=== PATIENT | male | born 1960 | race Caucasian/White ===

== ENCOUNTER 2016-08-14 22:50 | Emergency (ER) | payer OTHER ==
[~2016-08-14] VITALS: Wt 81.0 kg
[~2016-08-14 22:50] MED LIST: ADV50050 INHALATION; ALBU8.5H5 INHALATION; FAMO-18 PO; LORA10TA3 PO; TIOT18CA INHALATION
[2016-08-15] MEDS ORDERED: FLUORESCEIN STRIP RIGHT EYE ONE (00:30)
[2016-08-15] MEDS ORDERED: TETRACAINE 0.5% 4 ML OPH BOTH EYES ONE (00:30)
[2016-08-15] MEDS ORDERED: IPRATROPIUM (NEB) 0.5 MG/2.5 ML AMP NEB STA (00:32)
[2016-08-15] MEDS ORDERED: ALBUTEROL 0.083% (NEB) 2.5 MG/3 ML AMP NEB STA (00:32)
--- NOTE | 2016-08-15 00:32 | ERD ---
ER Documentation Chief Complaint Date/Time DATE: 08/15/16 TIME: 00:28 Chief Complaint r. eyelid swollen, denies trauma. low 02 in triage, hx asthma HPI 56-year-old male presents to emergency department for complaints of right upper and lower eyelid swelling that started yesterday, describes the pain as throbbing pain, 6/10 scale, is worse upon touching upper and lower eyelid. Patient denies vision changes, denies any trauma in the eye, denies any deformity sensation in the eye. Patient denies any fever or chills. Patient also is complaining cough that started with wheezing this morning. Patient has history of asthma, uses inhaler with only mild. Patient denies any chest or palpitations. Patient denies any irregular heartbeat. Patient denies any dyspnea on exertion or dyspnea on lying down. ROS All systems reviewed and are negative except as per history of present illness. Medications Home Meds Active Scripts Famotidine* (Pepcid*) 20 Mg Tablet, 20 MG PO BID for 14 Days, #60 TAB Prov:CATERINA DONAHUE V. SENIOR [employer] WE[employer] DEVELOPER 10/20/[address] [place]* (Spiriva*) 18 Mcg Cap.w.dev, 1 CAP INHALATION DAILY, #30 CAP Prov:CATERINA DONAHUE V. SENIOR [employer] WE[employer] DEVELOPER 10/20/15 Salmeterol Xinaf-Fluticasone* (Advair*) 500/50 Diskus Inhaler, 1 INH INHALATION BID, #1 INHALER Prov:CATERINA DONAHUE V. SENIOR [employer] WE[employer] DEVELOPER 10/20/15 Albuterol Sulfate* (Albuterol Sulfate* HFA) 8.5 Gm Hfa.aer.ad, 2 PUFF INHALATION Q4H Y for WHEEZING AND SOB, #1 VIAL use every 4 hrs for the next 2 days, then as needed only Prov:KYLE HERNANDEZ 03/02/15 Reported Medications Loratadine* (Loratadine*) 10 Mg Tablet, 10 MG PO DAILY 05/21/15 Allergies Allergies: Coded Allergies: aspirin (Verified Allergy, Unknown, 08/15/16) ibuprofen (Verified Allergy, Unknown, 08/15/16) ketorolac (Verified Allergy, Unknown, 08/15/16) PMhx/Soc History of Surgery: No Anesthesia Reaction: No Hx Neurological Disorder: No Hx Respiratory Disorders: Yes (asthma) Hx Cardiac Disorders: No Hx Psychiatric Problems: No Hx Miscellaneous Medical Probl: Yes (hypothyroid) Hx Alcohol Use: Yes Hx Substance Use: No Hx Tobacco Use: No Smoking Status: Former smoker FmHx Family History: No coronary disease, No diabetes, No other Physical Exam Vitals Vital Signs Date Time Temp Pulse Resp B/P Pulse Ox O2 Delivery O2 Flow Rate FiO2 08/15/16 02:40 76 18 151/91 95 Room Air 08/15/16 00:51 71 18 93 21 08/14/16 23:12 98.1 93 20 127/82 94 Physical Exam GENERAL: The patient is well developed and appropriate for usual state of health, in no apparent distress. HEENT: Atraumatic. Bilateral eyes are PERRL EOM intact. Ears: Normal tympanic membrane, no erythema or bulging. No ear canal swelling. No ear discharge. Nose : normal nasal turbinates, no erythema or swelling. Normal nasal discharge. Throat: oropharynx clear. No tonsillar swelling or tonsillar exudates. No lymphadenopathy. CHEST: Diffuse wheezing noted bilaterally. There are no rales, crackles or rhonchi. HEART: Regular rate and rhythm. No murmurs, clicks, rubs or gallops. No S3 or S4. ABDOMEN: Soft, nontender and nondistended. Good bowel sounds. No rebound or guarding. No gross peritonitis. No gross organomegaly or masses. No Torres sign or McBurney point tenderness. BACK: No midline or flank tenderness. EXTREMITIES: Equal pulses bilaterally. There is no peripheral clubbing, cyanosis or edema. No focal swelling or erythema. Full range of motion. Grossly neurovascularly intact. NEURO: Alert and oriented. Cranial nerves 2-12 intact. Motor strength in all 4 extremities with 5/5 strength. Sensation grossly intact. Normal speech and gait. SKIN: Erythematous and induration on the right upper eyelid and right eyelid periorbital area. There is no apparent ecchymosis or petechia. The skin is warm and dry. HEMATOLOGIC AND LYMPHATIC: There is no evidence of excessive bruising or lymphedema. No gross cervical, axillary, or inguinal lymphadenopathy. Result Diagram: 08/15/16 0029 08/15/16 0029 Results 24 hrs Laboratory Tests Test 08/15/16 00:29 White Blood Count 7.810^3/ul Red Blood Count 5.9910^6/ul Hemoglobin 14.0g/dl Hematocrit 45.3% Mean Corpuscular Volume 75.6fl Mean Corpuscular Hemoglobin 23.4pg Mean Corpuscular Hemoglobin Concent 30.9g/dl Red Cell Distribution Width 15.2% Platelet Count 79713^3/UL Mean Platelet Volume 11.0fl Neutrophils % 56.2% Lymphocytes % 23.3% Monocytes % 9.1% Eosinophils % 10.1% Basophils % 1.2% Nucleated Red Blood Cells % 0.0/100WBC Neutrophils # 4.410^3/ul Lymphocytes # 1.810^3/ul Monocytes # 0.710^3/ul Eosinophils # 0.810^3/ul Basophils # 0.110^3/ul Nucleated Red Blood Cells # 0.010^3/ul Sodium Level 140mmol/L Potassium Level 4.2mmol/L Chloride Level 106mmol/L Carbon Dioxide Level 27mmol/L Anion Gap 11 Blood Urea Nitrogen 12mg/dl Creatinine 0.94mg/dl Glucose Level 115mg/dl Lactic Acid Level 0.8mmol/L Calcium Level 8.8mg/dl Total Bilirubin 0.3mg/dl Direct Bilirubin 0.00mg/dl Indirect Bilirubin 0.3mg/dl Aspartate Amino Transf (AST/SGOT) 22IU/L Alanine Aminotransferase (ALT/SGPT) 35IU/L Alkaline Phosphatase 98IU/L Total Protein 7.4g/dl Albumin 4.1g/dl Globulin 3.30g/dl Albumin/Globulin Ratio 1.24 Current Medications Medications (Trade) Dose Ordered Sig/Nickie Route PRN Reason Start Time Stop Time Status Last Admin Dose Admin Fluorescein Sodium (Wfaeo-S-Nuyxi) 1 strip ONCE ONCE RIGHT EYE 08/15/16 00:30 08/15/16 00:31 DC Tetracaine HCl (Tetracaine 0.5% Steri-Unit Clara) 1 drop ONCE ONCE BOTH EYES 08/15/16 00:30 08/15/16 00:31 DC Albuterol (Proventil 0.083% (Neb)) 5 mg ONCE STAT NEB 08/15/16 00:32 08/15/16 00:36 DC 08/15/16 00:[address] [place] (Atrovent 0.02% (Neb)) 0.5 mg ONCE STAT NEB 08/15/16 00:32 08/15/16 00:36 DC 08/15/16 00:51 IV Flush 10 ml 10 ml STK-MED ONCE .ROUTE 08/15/16 01:36 08/15/16 01:37 DC 08/15/16 01:54 Sodium Chloride (NS) 100 ml @ ud STK-MED ONCE .ROUTE 08/15/16 01:36 08/15/16 01:37 DC 08/15/16 01:54 Iohexol (Omnipaque 300mg/ ml) 150 ml STK-MED ONCE .ROUTE 08/15/16 01:36 08/15/16 01:37 DC 08/15/16 01:55 Breathing treatment of albuterol and Atrovent was given here in emergency department, after treatment, patient's lungs sounds are clear and patient's oxygenation is better. Patient verbalized feeling much better. IV vancomycin and IV Zosyn was started here in emergency department. PROCEDURE: XR Chest. CLINICAL INDICATION: Cough and wheezing. TECHNIQUE: Single frontal view of the chest. COMPARISON: None. FINDINGS: The cardiomediastinal silhouette is within normal limits. The lungs are clear. No signs of pleural fluid or pneumothorax are seen. The osseous structures and soft tissues are unremarkable. IMPRESSION: No evidence for active cardiopulmonary disease. RPTAT: [facility] Physician Joanna Date Time Electronically viewed and signed by Physician Joanna on 08/15/2016 01:22 RS/ CC: GISELLE DUMONT NP PROCEDURE: CT ORBITS WITH CONTRAST CLINICAL INDICATION: 56-year-old male with right orbital swelling. TECHNIQUE: The study was performed utilizing a [employer] CT VCT 64-slice scanner. Direct axial sections were obtained through the facial bones with the use of 75 cc of Omnipaque-300 nonionic intravenous contrast material. Coronal and sagittal re-formations were obtained. One or more of the following dose reduction techniques were utilized: automated exposure control, adjustment of the mA and/or kV according to patient's size or use of iterative reconstruction technique. The images were reviewed on a PACS workstation. CTD/vol = 53.3 mGy ; Total Exam DLP = 696.5 mGy-cm. COMPARISON: No prior studies are available for comparison. FINDINGS: There is extensive right periorbital and paranasal soft tissue swelling but with periorbital cellulitis. There is evidence for prior sinus surgery with bilateral maxillary antrostomies and middle turbinectomies. There is erosion of the mid septum. There is extensive mucosal thickening and proteinaceous material filling the residual ethmoid air cells as well as the frontal and sphenoid sinuses. There are foci of focal erosion of the posterior right frontal sinus wall with enhancing soft tissue into the frontal lobe seen best on axial image 3-67 and axial image 3-62 worrisome for underlying cerebellar ileus and possible developing epidural abscess. There is erosion of the inferior rayo of the frontal sinuses with extension into the extraconal space of the orbits bilaterally more severe on the right side where there is a more hypodense focus measuring approximately 9 x 13 x 12 mm most suggestive of a developing abscess. There is extensive inflammatory tissue within the superior extraconal space causing deformity of the superior aspect of the orbit. There is evidence for foci of erosion within the lamina papyracea bilaterally however there is no definite extraconal extension. IMPRESSION: 1. Evidence for prior sinus surgery with bilateral maxillary antrostomies and middle turbinectomies with extensive disease within the residual ethmoid air cells, frontal and sphenoid sinuses. 2. Erosion of the posterior wall of the right frontal sinus with intracranial extension and inflammatory masses worrisome for underlying cerebritis and possible epidural abscess development. 3. Erosion of the inferior rayo of the frontal sinuses bilaterally more severe on the right side with extension into the right superior extraconal space causing mass effect and deformity of the superior aspect of the right globe. In addition, there is a focal fluid collection with extension into the preseptal space consistent with a small abscess. 4. Extensive right periorbital and paranasal soft tissue swelling consistent with cellulitis. 5. Multiple foci of erosion of the lamina papyracea bilaterally but without definite medial extraconal space extension. CRITICAL RESULTS: A call report was made to [facility] Olguin on August 15, 2016 at 03:23 a.m. .Garry Albright MD, Date Time Electronically viewed and signed by .Garry Albright MD, MD on 08/15/2016 03:33 .M/ CC: GISELLE DUMONT SENIOR PHP WEB DEVELOPER Procedures/MDM Procedure Note: After obtaining informed consent, the left eye was stained using fluorescein dye. After staining the eye, A Wood's lamp was used to evaluate the eye. There is no foreign body noted in the eye. No corneal abrasions noted. Patient tolerated procedure well. Bladder eyes were numbed using tetracaine ophthalmic solution. Bilateral eye pressures were checked, right eye is 37 mmHg, left eye 24 mmHg. Medical decision making: Patient has significant sinus infection with periorbital and orbital cellulitis with possible abscess in the periorbital and orbital area, and possible sinus infection extending after the intracranial and possible for cerebritis, further evaluation and higher level care is necessary, possible surgical intervention necessary, patient will be transferred to higher level of care, I discussed this case with my attending physician, Dr. Arriaza, I recommended to start patient on IV Zosyn and IV vancomycin which was started here in emergency department, patient will be transferred to a different hospital, Dr. Arriaza will facilitate transfer patient to a different hospital. Departure Diagnosis: Primary Impression: Orbital cellulitis Laterality: right Qualified Code: H05.011 - Orbital cellulitis, right Additional Impressions: Sinusitis Sinusitis location: unspecified location Chronicity: acute Recurrence: not specified as recurrent Qualified Code: J01.90 - Acute sinusitis, recurrence not specified, unspecified location Abscess of periorbital region Laterality: right Qualified Code: H05.011 - Abscess of periorbital region, right Acute asthma exacerbation Asthma severity: unspecified severity Qualified Code: J45.901 - Asthma with acute exacerbation, unspecified asthma severity Condition: Serious GISELLE DUMONT NP August 15, 2016 00:32
[2016-08-15 00:43] LABS: ADD SCAN DIFF NO
[2016-08-15 00:45] LABS: BASOPHIL # 0.1 10^3/ul (0.0-0.1); BASOPHILS % 1.2 % (0.0-2.0); EOSINOPHILS # 0.8 10^3/ul (0.0-0.5); EOSINOPHILS % 10.1 % (0.0-7.0); HEMATOCRIT 45.3 % (42.0-52.0); LYMPHOCYTES # 1.8 10^3/ul (0.8-2.9); LYMPHOCYTES % 23.3 % (15.0-51.0); MEAN CORPUSCULAR HEMOGLOBIN 23.4 pg (29.0-33.0); MEAN CORPUSCULAR HGB CONC 30.9 g/dl (32.0-37.0); MEAN CORPUSCULAR VOLUME 75.6 fl (82.0-101.0); MONOCYTE # 0.7 10^3/ul (0.3-0.9); MONOCYTES % 9.1 % (0.0-11.0); NEUTROPHIL # 4.4 10^3/ul (1.6-7.5); NEUTROPHILS % 56.2 % (39.0-77.0); PLATELET COUNT 185 10^3/UL (140-415); RED BLOOD COUNT 5.99 10^6/ul (4.70-6.10); RED CELL DISTRIBUTION WIDTH 15.2 % (11.5-14.5); WHITE BLOOD COUNT 7.8 10^3/ul (4.8-10.8)
[2016-08-15 01:03] LABS: ALBUMIN 4.1 g/dl (3.3-4.9); ALBUMIN/GLOBULIN RATIO 1.24; BILIRUBIN,INDIRECT 0.3 mg/dl (0-1.1); BILIRUBIN,TOTAL 0.3 mg/dl (0.2-1.3); CALCIUM 8.8 mg/dl (8.4-10.2); CREATININE 0.94 mg/dl (0.61-1.24); POTASSIUM 4.2 mmol/L (3.5-5.1); TOTAL PROTEIN 7.4 g/dl (6.1-8.1)
--- NOTE | 2016-08-15 01:22 | RADRPT ---
PROCEDURE: XR Chest. CLINICAL INDICATION: Cough and wheezing. TECHNIQUE: Single frontal view of the chest. COMPARISON: None. FINDINGS: The cardiomediastinal silhouette is within normal limits. The lungs are clear. No signs of pleural f luid or pneumothorax are seen. The osseous structures and soft tissues are unremarkable. IMPRESSION: No evidence for active cardiopulmonary disease. RPTAT: [facility] Physician Joanna Date Time Electronically viewed and signed by Flores Medina Physician on 08/15/2016 01:22 RS/
[2016-08-15] MEDS ORDERED: SOD CHLORIDE 0.9% 100 ML ONE (01:36)
[2016-08-15] MEDS ORDERED: IOHEXOL 300MG/ML 150 ML BTL ONE (01:36)
--- NOTE | 2016-08-15 03:33 | RADRPT ---
PROCEDURE: CT ORBITS WITH CONTRAST CLINICAL INDICATION: 56-year-old male with right orbital swelling. TECHNIQUE: The study was performed utilizing a [employer] CT VCT 64-slice scanner. Direct axia l sections were obtained through the facial bones with the use of 75 cc of Omnipaque-300 nonionic in travenous contrast material. Coronal and sagittal re-formations were obtained. One or more of the fo llowing dose reduction techniques were utilized: automated exposure control, adjustment of the mA an d/or kV according to patient's size or use of iterative reconstruction technique. The images were reviewed on a PACS workstation. CTD/vol = 53.3 mGy; Total Exam DLP = 696.5 mGy-cm. COMPARISON: No prior studies are available for comparison. FINDINGS: There is extensive right periorbital and paranasal soft tissue swelling but with periorbital celluli tis. There is evidence for prior sinus surgery with bilateral maxillary antrostomies and middle tur binectomies. There is erosion of the mid septum. There is extensive mucosal thickening and protein aceous material filling the residual ethmoid air cells as well as the frontal and sphenoid sinuses. There are foci of focal erosion of the posterior right frontal sinus wall with enhancing soft tissue into the frontal lobe seen best on axial image 3-67 and axial image 3-62 worrisome for underlying c erebellar ileus and possible developing epidural abscess. There is erosion of the inferior rayo of the frontal sinuses with extension into the extraconal space of the orbits bilaterally more severe on the right side where there is a more hypodense focus measuring approximately 9 x 13 x 12 mm most suggestive of a developing abscess. There is extensive inflammatory tissue within the superior extraconal space causing deformity of the superior aspect of the orbit. There is evidence for foci o f erosion within the lamina papyracea bilaterally however there is no definite extraconal extension. IMPRESSION: 1. Evidence for prior sinus surgery with bilateral maxillary antrostomies and middle turbinectomie s with extensive disease within the residual ethmoid air cells, frontal and sphenoid sinuses. 2. Erosion of the posterior wall of the right frontal sinus with intracranial extension and inflamma tory masses worrisome for underlying cerebritis and possible epidural abscess development. 3. Erosion of the inferior rayo of the frontal sinuses bilaterally more severe on the right side w ith extension into the right superior extraconal space causing mass effect and deformity of the supe rior aspect of the right globe. In addition, there is a focal fluid collection with extension into the preseptal space consistent with a small abscess. 4. Extensive right periorbital and paranasal soft tissue swelling consistent with cellulitis. 5. Multiple foci of erosion of the lamina papyracea bilaterally but without definite medial extraco nal space extension. CRITICAL RESULTS: A call report was made to [facility] SIMÓN Olguin on August 15, 2016 at 03:23 a. m. .Garry Albright MD, MD Date Time Electronically viewed and signed by .Garry Albright MD, MD on 08/15/2016 03:33 .M/
[2016-08-15] MEDS ORDERED: PIPER-TAZO 3.375 GM IV (PMX) 100 ML IVPB ONE (04:00)
[2016-08-15] MEDS ORDERED: VANCOMYCIN 1 GM (PMX) 250 ML IVPB SCH (04:00)
[2016-08-15 07:00] VITALS: BP 170/102; PULSE 82; RESP 20
== END 2016-08-15 07:39 | disposition short-term general hospital (02) ==
LOC: FTE 22:50
DX: H05.011 Cellulitis of right orbit (principal); J01.90 Acute sinusitis, unspecified; J45.901 Unspecified asthma with (acute) exacerbation; E03.9 Hypothyroidism, unspecified; R05 Cough; Z87.891 Personal history of nicotine dependence
CPT/HCPCS: 70480; 71010; 80053; 83605; 85025; 94664; 96374; 96375; J2543; J3370; Q9967; Z7502; Z7610

== ENCOUNTER 2017-06-24 16:25 | Emergency (ER) | END 2017-06-24 19:01 | disposition home or self-care (01) ==

== ENCOUNTER 2017-07-15 14:27 | Emergency (ER) | END 2017-07-15 17:25 | disposition home or self-care (01) ==

== ENCOUNTER 2017-08-11 03:21 | Inpatient (IN) | END 2017-08-14 14:30 | disposition home or self-care (01) | DRG 191 ==

== ENCOUNTER 2017-09-16 14:39 | Emergency (ER) | END 2017-09-16 16:18 | disposition home or self-care (01) ==

== ENCOUNTER 2017-10-04 20:49 | Inpatient (IN) | END 2017-10-05 18:07 | disposition home or self-care (01) | DRG 191 ==

== ENCOUNTER 2017-10-16 22:24 | Emergency (ER) | END 2017-10-17 02:12 | disposition home or self-care (01) ==

== ENCOUNTER 2018-02-20 17:10 | Emergency (ER) | END 2018-02-20 19:28 | disposition home or self-care (01) ==

== ENCOUNTER 2018-03-01 00:39 | Inpatient (IN) | END 2018-03-02 14:00 | disposition home or self-care (01) | DRG 193 ==

== ENCOUNTER 2018-06-01 23:04 | Emergency (ER) | payer OTHER ==
[~2018-06-01] VITALS: Ht 177.8 cm; Wt 100.0 kg
[~2018-06-01 23:04] MED LIST changes: -ADV50050 INHALATION; -ALBU8.5H5 INHALATION; +BUDE6HFA INHALATION; -FAMO-18 PO; +LEVA15HF6 INH; +LEVO750T8 PO; +LEVO75TA5 PO; -LORA10TA3 PO; +PRED50 PO
--- NOTE | 2018-06-02 02:04 | ERD ---
ER Documentation Chief Complaint Chief Complaint PALPITATIONS HPI The patient is 57-year-old male, presenting to the ER because of chronic palpitations more than 4 months, seen by his physician about a month ago, he is awaiting to see a mds rn on June 13, 2018. He has been eating a lot of garlic because he heard a garlic is good for her heart. He denies fever, syncope, near syncope, neck pain, chest pain, dyspnea, abdominal pain, vomiting, dysuria, diarrhea. He has frequent belching because of the increased intake of garlic, he does not smoke, drinks socially Past medical history: Palpitation, hypothyroidism, asthma, COPD, hypertension Surgical history: None ROS All systems reviewed and are negative except as per history of present illness. Medications Home Meds Active Scripts Prednisone (Prednisone) 50 Mg Tab, 40 MG PO DAILY, #2 TAB Prednisone 40 mg p.o. daily 2 days, then Prednisone 20 mg p.o. daily 2 days, then Prednisone 10 mg p.o. daily 2 days, then Prednisone 5 mg p.o. daily 2 days. Prov:BALTAZAR BAH NP 03/02/18 Tiotropium [place]* (Spiriva*) 18 Mcg Cap.w.dev, 1 CAP INHALATION DAILY, #30 CAP Prov:BALTAZAR BAH NP 03/02/18 Levalbuterol* (Xopenex* HFA) 15 Gm Inha, 2 PUFFS INH Q4H PRN for WHEEZING AND SOB, #1 INHALER Prov:BALTAZAR BAH NP 03/02/18 Levofloxacin* (Levofloxacin*) 750 Mg Tablet, 750 MG PO DAILY for 7 Days, #7 TAB Prov:BALTAZAR BAH NP 03/02/18 Reported Medications Budesonide-Formoterol Fumarate* (Symbicort*) 160-4.5 Hfa.aer.ad, 2 PUFF INHALATION BID, #1 EACH 10/04/17 Levothyroxine Sodium* (Levothyroxine Sodium*) 75 Mcg Tablet, 75 MCG PO BEFORE BREAKFAST, #30 TAB 09/16/17 Allergies Allergies: Coded Allergies: acetaminophen (Unverified Allergy, Intermediate, 02/28/18) RASH aspirin (Unverified Allergy, Unknown, 02/28/18) ibuprofen (Unverified Allergy, Unknown, 02/28/18) ketorolac (Unverified Allergy, Unknown, 02/28/18) PMhx/Soc History of Surgery: Yes (7 NOSE SURGERIES;) Anesthesia Reaction: No Hx Neurological Disorder: No Hx Respiratory Disorders: Yes (ASTHMA;) Hx Cardiac Disorders: No Hx Psychiatric Problems: No Hx Miscellaneous Medical Probl: No Hx Alcohol Use: No Hx Substance Use: No Hx Tobacco Use: Yes Physical Exam Vitals Vital Signs Date Temp Pulse Resp B/P (MAP) Pulse Ox O2 O2 Flow FiO2 Time Delivery Rate 06/02/18 80 18 154/99 95 Room Air 02:34 (117) 06/01/18 97.9 90 18 152/93 96 23:24 (112) Physical Exam Const: No acute distress. Head: Atraumatic. Eyes: Normal Conjunctiva. ENT: Normal External Ears, Nose and Mouth. Neck: Full range of motion. No meningismus. Resp: Clear to auscultation bilaterally. Cardio: Regular rate and rhythm. Abd: Soft, non distended, normal bowel sounds, non tender. Skin: No petechiae or rashes. Back: No midline or flank tenderness. Ext: No cyanosis, or edema. Neur: Awake and alert. No focal deficit Psych: Normal Mood and Affect. Procedures/MDM EKG: Read by emergency physician Rate/Rhythm: Normal Sinus Rhythm 84 beats/min QRS, ST, T-waves: No ST elevation, no T inversion Impression: Normal EKG MEDICAL MAKING DECISION: The patient is a 57-year-old male, presenting with chronic palpitation, is stable for outpatient follow-up The differential diagnoses considered include but are not limited to anxiety attack, panic attack, thyroid disease, increased caffeine intake Departure Diagnosis: Primary Impression: Palpitations Condition: Good Comments I discussed the findings with the patient. I advised the patient to follow-up with the primary physician in about 2-3 days, sooner if needed and return if any concern. Disclaimer: Inadvertent spelling and grammatical errors are likely due to EHR/dictation software use and do not reflect on the overall quality of patient care. Also, please note that the electronic time recorded on this note does not necessarily reflect the actual time of the patient encounter. ASHLEE PARKER MD Jun 02, 2018 02:04
[2018-06-02 02:39] VITALS: BP 121/89; PULSE 73; RESP 16; Ht 177.8 cm; Wt 100.0 kg
== END 2018-06-02 02:35 | disposition home or self-care (01) ==
LOC: E/R 23:04
DX: R00.2 Palpitations (principal); J45.909 Unspecified asthma, uncomplicated; I10 Essential (primary) hypertension; J44.9 Chronic obstructive pulmonary disease, unspecified; E03.9 Hypothyroidism, unspecified; Z87.891 Personal history of nicotine dependence
CPT/HCPCS: 93005